=== PATIENT | male | born 1960 | race Caucasian/White ===

== ENCOUNTER 2017-09-10 19:24 | Emergency (ER) | payer BC ==
[~2017-09-10] VITALS: Ht 182.9 cm; Wt 180.8 kg
[~2017-09-10 19:24] MED LIST: ASPIRIN E.C.81 M1 PO; LEVOXYL112 MCG PO; LOPRESSOR25 MG PO; Levothroid,Synthroid PO; METOPROLOL TART25 MG PO; OMEGA 3-6-91200 MG PO; PAROXETINE HCL20 MG PO; PAXIL20 MG PO; PLAVIX75 MG PO; PRAVACHOL40 MG PO; PRAVASTATIN SOD40 MG PO; ZESTRIL,PRINIV2.5 MG PO; Zestril,Prinivil PO
[2017-09-10 20:04] LABS: BASOPHIL (%) 0.2 % (0-1); EOSINOPHIL (%) 0.3 % (0-5); HEMATOCRIT 43.1 % (38.0-50.0); HEMOGLOBIN 14.6 G/DL (12.5-16.6); IMMATURE GRANULOCYTE (%) 0.5 % (0.0-0.7); LYMPHOCYTE COUNT 0.7 K/uL (1.0-2.8); MCH 30.1 PG (29.0-34.0); MCHC 33.9 G/DL (30.0-36.0); MCV 88.9 FL (86-99); MONOCYTE (%) 3.6 % (3-12); MONOCYTE COUNT 0.3 K/uL (0-0.8); NEUTROPHIL (%) 88.4 % (45-76); NEUTROPHIL COUNT 8.2 K/uL (1.8-6.4); PLATELET COUNT 239 K/uL (156-360); RBC DIS.WIDTH-CV 12.9 % (11.8-14.6); RBC DIS.WIDTH-SD 41.9 % (39-53); RED BLOOD COUNT 4.85 M/uL (4.00-5.50); WHITE BLOOD COUNT 9.2 K/uL (4.1-10.2)
[2017-09-10 20:12] LABS: CHLORIDE 104 mEq/L (99-109); POTASSIUM 4.7 mEq/L (3.7-5.4); SODIUM 141 mEq/L (136-147)
[2017-09-10 20:13] LABS: GLUCOSE 123 mg/dL (70-99)
[2017-09-10 20:17] LABS: CREATININE 1.1 mg/dL (0.6-1.3); GFR ESTIMATE (CALCULATED) > 59 mL/min/ (58.99-99999)
[2017-09-10 20:18] LABS: UREA NITROGEN (BUN) 18 mg/dL (9-23)
[2017-09-10] MEDS ORDERED: TAMIFLU75 MG PO (21:52)
[2017-09-10 22:20] VITALS: BP 178/92
== END 2017-09-10 22:20 | disposition home or self-care (01) ==
LOC: EME → EDBD 19:24 → EME 19:24
PROVIDERS: Emergency Medicine
DX: J10.1 Influenza due to other identified influenza virus with other respiratory manifestations (principal); R19.7 Diarrhea, unspecified; R11.0 Nausea; R42 Dizziness and giddiness; R51 Headache; I10 Essential (primary) hypertension; E78.5 Hyperlipidemia, unspecified; Z79.02 Long term (current) use of antithrombotics/antiplatelets; Z79.82 Long term (current) use of aspirin
CPT/HCPCS: 71046; 80048; 85025; 87502; J1885; J2405; J7030